=== PATIENT | male | born 1945 | race African-American/Black ===

== ENCOUNTER 2018-07-03 10:38 | Emergency (ER) | payer OTHER ==
[~2018-07-03] VITALS: Ht 177.8 cm; Wt 90.0 kg
[2018-07-03] MEDS ORDERED: ACETAMINOPHEN 325MG TABLET PO STA (11:08)
[2018-07-03 11:25] LABS: HEMATOCRIT. 42.3 % (42.0-52.0); HEMOGLOBIN. 14.1 g/dL (14.0-18.0); MEAN CORPUSCULAR HEMOGLOBIN 29.2 pg (28.0-32.0); MEAN CORPUSCULAR VOLUME 87.8 fL (80.0-94.0); MEAN PLATELET VOLUME 8.9 fl (7.4-10.4); PLATELET 197 x1000/uL (130-400); RED BLOOD CELL COUNT 4.82 mill/uL (4.7-6.1); RED CELL DISTRIBUTION WIDTH 14.1 % (11.6-14.6)
[2018-07-03 11:32] LABS: CHLORIDE 106 mEq/L (98-107)
[2018-07-03 11:33] LABS: PROTHROMBIN TIME 10.8 sec (9.6-11.0)
[2018-07-03 12:30] LABS: PLATELET ESTIMATE NORMAL
[2018-07-03] MEDS ORDERED: MECLIZINE 25MG TABLET PO ONE (13:00)
[2018-07-03] MEDS ORDERED: ONDANSETRON HCL 4MG/2ML INJ IV ONE (13:00)
[2018-07-03 14:11] VITALS: BP 118/54
== END 2018-07-03 15:12 | disposition left against medical advice (07) ==
LOC: ER 11:01 → CANBEDREQ 18:05
DX: R07.89 Other chest pain (principal); R42 Dizziness and giddiness
CPT/HCPCS: 36415; 70450; 71045; 80053; 83690; 83880; 84484; 85025; 85610; 93005; 96374; 99284; J2405